=== PATIENT | female | born 1970 | race Hispanic/Latino ===

== ENCOUNTER 2019-02-23 14:04 | Outpatient (CLI) | payer BC ==
--- NOTE | 2019-02-23 15:12 | RAD ---
LUMBAR SPINE 3 VIEWS: HISTORY: Low back pain. FINDINGS: Degenerative changes are seen most prominent in the lower lumbar spine. No fracture, subluxation, or bony destruction is identified. IMPRESSION: Lumbar spondylosis. POS: [place]
--- NOTE | 2019-02-23 15:14 | RAD ---
AP VIEW OF THE PELVIS: INDICATION: Low back pain. COMPARISON: None. FINDINGS: There is mild degenerative change at both SI joints and symphysis pubis. Mild degenerative change is seen at both hips. No acute fracture or subluxation is evident. IMPRESSION: 1. No acute osseous abnormality. 2. Mild degenerative changes of the pelvis. POS: [facility]
== END 2019-02-23 14:05 | disposition home or self-care (01) ==
LOC: RAD 14:04
PROVIDERS: ATTEND Specialist
DX: M54.5 Low back pain (principal); M47.816 Spondylosis without myelopathy or radiculopathy, lumbar region; M25.551 Pain in right hip; M25.552 Pain in left hip
CPT/HCPCS: 72100; 72170

== ENCOUNTER 2020-06-26 13:01 | Outpatient (CLI) | payer BC ==
--- NOTE | 2020-06-26 14:14 | ULT ---
TRANSABDOMINAL AND TRANSVAGINAL PELVIC ULTRASOUND WITH TANG SCALE, COLOR FLOW AND SPECTRAL DOPPLER IM AGIN06/26/20 HISTORY: Pelvic pain. FINDINGS: The uterus measures 8.5 x 5.4 x 4.5 cm with a mass in the lower uterine segment measuring 3.2 x 2.8 x 2.6 cm, likely fibroid. The endometrium measures 9 mm in thickness. No free fluid is seen. The left ovary is not visualized. The right ovary measures 3.4 x 1.7 x 1.6 cm. A 1.7 cm cyst. It is d ifficult to demonstrate flow in the right ovary. No adnexal mass or free fluid is seen. IMPRESSION: Findings are suspicious for a uterine fibroid in the lower uterine segment. POS: [facility]
== END 2020-06-26 13:02 | disposition home or self-care (01) ==
LOC: BICULT 13:01
PROVIDERS: ATTEND Specialist
DX: R10.2 Pelvic and perineal pain (principal)
CPT/HCPCS: 76856

== ENCOUNTER 2020-09-30 10:37 | Day surgery (SDC) | payer BC ==
[2020-09-26 09:32] LABS: Hemoglobin 14.1 g/dL (12.0-16.0); Mean Corpuscular HGB CONC 33.7 G/DL (32.0-36.0); Mean Corpuscular Hemoglobin 31.9 PG (27.0-33.0); Mean Corpuscular Volume 94.6 fl (80.0-100.0); Mean Platelet Volume 10.8 fl (7.4-10.4); Platelet Count 285 10x3/uL (130-400); RBC Distribution Width 13.4 % (11.5-14.5); Red Blood Cell (RBC) Count 4.42 10x6/uL (3.90-5.20); White Blood Cell (WBC) Count 8.9 10x3/uL (4.5-11.0)
[2020-09-26 10:56] VITALS: BMI 35.4
[2020-09-26 16:38] LABS: SARS-CoV-2 MS2 Positive; SARS-CoV-2 N Gene Negative; SARS-CoV-2 S Gene Negative; SARS-CoV-2 by NAA Not Detected (NotDetected); SARS-CoV-2 orf1ab Negative
[~2020-09-30 10:37] MED LIST: Dexamethasone 20 MG/5 ML VIAL ONE; Glycopyrrolate 0.2 MG/ML 5 ML SYRINGE ONE; Lidocaine 1% PF 5 ML VIAL ONE; PROPOFOL 200 MG/20 ML VIAL ONE; Rocuronium Bromide 10 MG/ML (10ML VIAL) ONE
[2020-09-30] MEDS ORDERED: Lidocaine 1% w/Epinephrine 1:100K 20 ML VIAL ONE (11:10)
[2020-09-30] MEDS ORDERED: Bupivacaine PF 0.5% 30 ML VIAL ONE (11:10)
[2020-09-30] MEDS ORDERED: CeleCOXIB 100 MG CAP ONE (12:03)
[2020-09-30] MEDS ORDERED: Famotidine/PF 20 mg/2ml Vial ONE (12:03)
[2020-09-30] MEDS ORDERED: Gabapentin 300 MG CAP ONE (12:03)
[2020-09-30] MEDS ORDERED: Fentanyl 100 MCG/2 ML VIAL ONE ×2 (12:08→14:12)
[2020-09-30] MEDS ORDERED: HYDROmorphone 0.5 MG/0.5 ML SYRINGE ONE (12:08)
[2020-09-30] MEDS ORDERED: Midazolam HCl 2 mg/2 ml Vial ONE (12:23)
[2020-09-30] MEDS ORDERED: Sodium Chloride 0.9% 10 ML ONE (12:33)
[2020-09-30] MEDS ORDERED: hydrALAZINE 20 MG/ML VIAL ONE (14:16)
[2020-09-30] MEDS ORDERED: Promethazine HCl 25 MG/ML VIAL SLOW IVP PRN (14:22)
[2020-09-30] MEDS ORDERED: HYDROmorphone 2 MG/ML VIAL SLOW IVP PRN (14:22)
[2020-09-30] MEDS ORDERED: Promethazine HCl 25 MG/ML VIAL IM PRN (14:22)
[2020-09-30] MEDS ORDERED: hydrALAZINE 20 MG/ML VIAL SLOW IVP SCH (14:30)
[2020-09-30] MEDS ORDERED: HYDROcodone/Acetaminophen 5/325 mg Tablet ONE (16:28)
[2020-09-30] MEDS ORDERED: Ondansetron PF 4 MG/2 ML Vial ONE (16:46)
--- NOTE | 2020-10-01 13:20 | OP ---
DATE OF PROCEDURE: 09/30/2020 PREOPERATIVE DIAGNOSES: 1. Uterine fibroids. 2. Pelvic pain. POSTOPERATIVE DIAGNOSES: 1. Uterine fibroids. 2. Pelvic pain. PROCEDURES PERFORMED: Robotic-assisted total laparoscopic hysterectomy and bilateral salpingectomy. ANESTHESIA: General endotracheal. TECHNICIAN BIOLOGICAL HEALTH SURGEON: Shalonda Null PA-C ESTIMATED BLOOD LOSS: 20 mL. IVF: 1 L of crystalloid. URINE OUTPUT: 35 mL of clear urine. COMPLICATIONS: None. DRAINS: Ruiz catheter. PATHOLOGY: Uterus, cervix, and bilateral fallopian tubes. DESCRIPTION OF PROCEDURE: The patient was taken to the operating room where general anesthesia was obtained without difficulty. The patient was prepped and draped in a sterile fashion in the dorsal lithotomy position. A Ruiz catheter was placed in the bladder. A speculum was placed in the vagina. The anterior lip of the cervix was grasped with a single-tooth tenaculum. The uterus then sounded to 7 cm and the cervix was progressively dilated with Cirilo dilators. The RADHA manipulator was assembled with a 6-cm tip and a 4-cm colpotomizer ring. The manipulator was inserted into the uterus. Balloons were inflated. Speculum and tenaculum were removed out of the vagina. Legs were placed in low lithotomy. Attention was turned to the abdomen. A mixture of 0.5% Marcaine plain and 1% lidocaine with epi infiltrated into the umbilicus. A 12-mm skin incision was made and a Veress needle was passed into the abdomen, noting an opening pressure of 0 mmHg. Pneumoperitoneum was obtained without difficulty. The Veress needle was removed. The 12-mm trocar was advanced into the abdomen and confirmed placement with robotic camera. Steep Trendelenburg was obtained. Right and left lower quadrant 8-mm robotic trocars were placed under direct visualization after infiltrating with anesthetic mixture. The right upper quadrant 11-mm dental assistant instructor port was also placed under direct visualization after infiltrating with the anesthetic. The robot was then docked. The right robotic arm contained monopolar scissors. Left robotic arm contained a fenestrated bipolar. The surgeon console took control. The right fallopian tube was grasped and elevated. The fallopian tube was clamped across. There was a prior tubal ligation. The distal tip was cauterized and then the supporting mesosalpinx was incised with the scissors and the fallopian tube segment was then removed out of the abdomen. The proximal fallopian tube was removed en bloc with the uterus. The utero-ovarian was cauterized multiple times and incised with the scissors. The round ligament was cauterized in the midportion and incised with the scissors. The posterior leaf of the broad ligament was incised down to the level of the uterosacral. The ureter was noted running in the pelvic sidewall. It was then dissected out retroperitoneally bluntly using the fenestrated pushing and spreading as well as cautery for hemostasis of small vessels. The anterior leaf of the broad ligament was also incised until the level of the bladder flap and the uterine vessels were skeletonized. The bladder flap was then created by undermining with the scissors initially and then incising and then this peritoneum was tented up and the adventitia on the pubocervical fascia was incised with the scissors on cautery and the pubocervical fascia was scored. The scissors were then used to carry around the incision of the left side of the anterior leaf of the broad ligament. Once the round ligament was reached, the window was made underneath the round ligament and this midportion through the window was cauterized with the fenestrated. Sequential cautery with fenestrated followed by incision with the scissors was performed to the utero-ovarian ligament. The fallopian tube on the left side was also clamped across and the supporting mesosalpinx cauterized with the fenestrated and incised with the scissors and then removed out of the abdomen. The uterine vessels were then skeletonized on the left side and the posterior leaf of the broad ligament was incised down to the level of the uterosacral and the ureter was noted laterally in the pelvic sidewall and then identified retroperitoneally as well. Once the uterine vessels had adequate skeletonization, the vessels were cauterized multiple times bilaterally. Colpotomy was then performed completely except for the lateral apices where the vessels were. The vessels were then incised and this incision was made just above the level of the internal cervical os, so as to allow the pedicle to fall away and protrude out of the vaginal cuff apex. The hemostasis was achieved with the fenestrated and the colpotomy was then completed. Uterus was placed into the vagina as a means to maintain pneumoperitoneum. The vaginal cuff was copiously irrigated and suctioned and hemostasis was achieved with fenestrated. The scissors were traded out for the needle semi driver and the vaginal cuff was closed with a 2-0 Stratafix barbed suture in a running fashion and run back for a second layer and this needle was cut and removed out of the abdomen. The closure incorporated vaginal mucosa and posterior peritoneum in each bite and copious irrigation and suction were performed again of the pelvis. Low pressure check was performed. Hemostasis was noted to be excellent. All instruments were then removed from the abdomen and the robot was undocked. Pneumoperitoneum was released and the fascia of the umbilical port was closed with 0 Vicryl in [id number] fashion. The skin was closed with 4-0 Monocryl in subcuticular fashion and Dermabond was applied. The vaginal cuff was checked and noted to be hemostatic with an excellent closure from the vaginal direction and all instruments were removed out of the vagina. The patient tolerated the procedure well. Sponge, lap, and needle counts correct x2. The patient was taken to recovery room in stable condition. The patient received Ancef 2 g prior to the procedure. Job ID: [id number]
== END 2020-09-30 17:43 | disposition home or self-care (01) ==
LOC: SDC 10:37
PROVIDERS: ATTEND Student in an Organized Health Care Education/Training Program
PROC: 0UT74ZZ Resection of Bilateral Fallopian Tubes, Percutaneous Endoscopic Approach (ICD-10-PCS; principal; 2020-09-30)
PROC: 0UT94ZZ Resection of Uterus, Percutaneous Endoscopic Approach (ICD-10-PCS; principal; 2020-09-30)
DX: D25.9 Leiomyoma of uterus, unspecified (principal); N72 Inflammatory disease of cervix uteri; N83.202 Unspecified ovarian cyst, left side; E66.9 Obesity, unspecified; Z68.35 Body mass index [BMI] 35.0-35.9, adult; Z21 Asymptomatic human immunodeficiency virus [HIV] infection status; Z86.010 Personal history of colon polyps; Z79.899 Other long term (current) drug therapy; Z88.5 Allergy status to narcotic agent; Z91.040 Latex allergy status; Z20.828 Contact with and (suspected) exposure to other viral communicable diseases
CPT/HCPCS: 36415; 85027; 86850; 86900; 86901; 87635; 88307; J0360; J0690; J1100; J1170; J2250; J2405; J2704; J3010; S0020; S0028; U0003